=== PATIENT | female | born 1955 | race Caucasian/White ===

== ENCOUNTER 2024-04-04 08:09 | Outpatient (CLI) | payer MEDICARE ==
[~2024-04-04 08:09] MED LIST: Iopamidol 370 76% 100 ML VIAL ONE
== END 2024-04-04 08:10 | disposition home or self-care (01) ==
LOC: BICCT 08:09
PROVIDERS: ATTEND Physician Assistant Medical
DX: R10.11 Right upper quadrant pain (principal); R10.30 Lower abdominal pain, unspecified; R11.0 Nausea; R63.5 Abnormal weight gain; R16.0 Hepatomegaly, not elsewhere classified
CPT/HCPCS: 74177; 82565; Q9967